=== PATIENT | female | born 1945 | race African-American/Black ===

== ENCOUNTER → 2017-03-09 | Outpatient (CLI) | payer MEDICARE, BC, OTHER ==
[~2017-03-09] MED LIST: ACIPHEX20 MG PO; ASPIRIN E.C. 8181 MG PO; BONIVA150 MG PO; CALCIUM 500500 M2 PO; CALCIUM 600/VIT1 CAP PO; CATAPRES 0.1MG0.1 MG PO; COLACE 100100 MG/CAP PO; IRON325 M1 PO; IRON325 MG PO; KLONOPIN 0.5MG0.5 MG PO; MASON NATURAL2000 IU PO; MIRALAX PA17 GM/Dose PO; MOBIC15 MG PO; MOTRIN 600600 MG/TAB PO; MULTIPLE VITAMI1 CAP PO; NEURONTIN300 MG/CAP PO; NORCO 325 MG-51 TAB PO; NORFLEX 10100 MG/TAB PO; OMEGA-31000 MG PO; OYSCO 500500 M1 PO; PERCOCET 325 MG1 TAB PO; PROLIA60 MG/ML SC; ULTRAM 50MG TAB50 MG PO; VITAMIN B-1000 MCG/T PO; VITAMIN B1250 MCG PO; VITAMIN C500 MG PO; VITAMIN D1000 IU PO; VITAMIN E1000 U/CAP PO
[2017-03-09 13:10] LABS: BASO % 0.3 % (0.0-2.0); EOS # 0.1 (0.0-0.7); EOS % 1.7 % (0-4.0); GRAN % 59.9 % (42.2-75.2); HEMATOCRIT 40.1 % (37.0-47.0); HEMOGLOBIN 12.1 g/dl (12.5-16.0); LYMPH # 2.2 (1.2-3.4); LYMPH % 33.3 % (20.0-51.0); MEAN CELL VOLUME 77 fl (80.0-100.0); MEAN CORPUSCULAR HEMOGLOBIN 23 pg (27.0-31.0); MEAN CORPUSCULAR HGB CONC 30 g/dl (33.0-37.0); MEAN PLATELET VOLUME 10.1 fl (7.4-10.4); MONO # 0.3 (0.1-0.6); MONO % 4.5 % (1.7-9.3); PLATELET COUNT 309 K/mm3 (130-400); RED BLOOD COUNT 5.23 M/mm3 (4.10-5.30); WHITE BLOOD COUNT 6.6 K/mm3 (4.8-10.8)
[2017-03-09 13:14] LABS: PH 5 (5-8); SQUAMOUS EPITHELIAL None Seen /hpf; URINE APPEARANCE Clear; URINE BACTERIA None Seen /hpf; URINE BILIRUBIN Negative (NEGATIVE); URINE BLOOD Negative (NEGATIVE); URINE COLOR Yellow; URINE GLUCOSE Negative (NEGATIVE); URINE KETONE Negative (NEGATIVE); URINE UROBILINOGEN Negative (NEGATIVE); URINE WBC 0-2 /hpf
[2017-03-09 13:43] LABS: ADJUSTED CALCIUM 8.7 mg/dL (8.4-10.2); ALBUMIN 4.6 gm/dL (3.5-5.0); BILIRUBIN,TOTAL 0.4 mg/dL (0.0-1.0); CALCIUM 9.2 mg/dL (8.4-10.2); CREATININE, serum 0.68 mg/dL (0.52-1.25); POTASSIUM 3.8 mmol/L (3.4-5.0); TOTAL PROTEIN 8.1 gm/dL (6.4-8.2)
== END ==
LOC: COL.LAB 11:37
PROVIDERS: Orthopaedic Surgery
DX: M25.561 Pain in right knee (principal); Z96.651 Presence of right artificial knee joint